=== PATIENT | female | born 1995 | race Caucasian/White ===

== ENCOUNTER 2022-10-20 15:46 | Emergency (ER) | payer BC, MEDICAID | END 2022-10-20 17:09 | disposition home or self-care (01) | LOC: VM.ED 15:46 | DX: O99.891 Other specified diseases and conditions complicating pregnancy (principal); R10.32 Left lower quadrant pain; O10.011 Pre-existing essential hypertension complicating pregnancy, first trimester; O99.011 Anemia complicating pregnancy, first trimester; Z3A.01 Less than 8 weeks gestation of pregnancy | CPT/HCPCS: 81025; 99284 ==